=== PATIENT | male | born 1980 | race Caucasian/White ===

== ENCOUNTER 2024-02-07 17:44 | Emergency (ER) | payer OTHER, SELFPAY ==
[2024-02-07 17:46] VITALS: BP 132/85; PULSE 83; RESP 14; TEMP 36.7; O2SAT 96
[2024-02-07] MEDS: ACETAMINOPHEN 1,000 MG/100 ML BTL 400 MG IVPB (18:17)
[2024-02-07 18:21] LABS: Abs Immature Grans 0.02 10^3/uL (0.0-0.06); Absolute Basophil Count 0.07 10^3/uL (0.0-0.2); Absolute Eosinophil Count 0.84 10^3/uL (0.0-0.7); Absolute Lymphocyte Count 2.04 10^3/uL (1.2-3.4); Absolute Monocyte Count 0.84 10^3/uL (0.1-0.8); Absolute Neutrophil Count 4.05 10^3/uL (1.2-6.7); Basophils % 0.9 %; Eosinophils % 10.7 %; HCT 45.1 % (40.0-50.0); HGB 14.3 g/dL (13.5-17.5); Immature Grans % 0.3 %; MCH 31.2 pg (27.0-33.0); MCHC 31.7 % (32.0-36.0); MCV 99 fL (80-95); MPV 11.1 fL (8.0-11.0); Monocytes % 10.7 %; Neutrophils % 51.4 %; Platelet Count 254 10^3/uL (130-400); RBC 4.58 10^6/uL (4.36-5.78); RDW 12.8 % (11.8-14.1); RDW-SD 46.1 fL; WBC 7.86 10^3/uL (4.4-10.8)
[2024-02-07 18:23] LABS: ESR 16 mm/hr (0-15)
[2024-02-07 18:36] LABS: ALT 32 U/L (16-63); AST 32 U/L (15-37); Albumin 3.5 g/dL (3.4-5.0); Alkaline Phosphatase 99 U/L (46-116); Anion Gap 5.2 mmol/L (3-11); BUN 26 mg/dL (7-18); Bilirubin, Total 0.34 mg/dL (0.2-1.0); C-Reactive Protein 0.77 mg/dL (<or=0.5); CO2 32.8 mmol/L (21.0-32.0); CREATININE 1.2 mg/dL (0.70-1.30); Calcium 9.3 mg/dL (8.5-10.1); Chloride 104 mmol/L (98-107); Estimated GFR 77.43 (mL/min/1.73m2); Glucose 97 mg/dL (74-106); Potassium 3.8 mmol/L (3.5-5.1); Sodium 142 mmol/L (136-145); Total Protein 7.9 g/dL (6.4-8.2)
[2024-02-07 19:03] VITALS: BP 106/65; PULSE 78; RESP 14; O2SAT 97
[2024-02-07] MEDS: methylPREDNISolone SUCC 125 MG VIAL IVP (19:06)
--- NOTE | 2024-02-07 19:17 | W.ED.GENAD ---
Discharge Plan Disposition Patient Disposition: Home Condition: Stable Discharge Details Clinical Impression: Abdominal pain, Abdominal pain despite therapy for Crohn's disease Primary Care Provider: Rocio,Local ED Provider: Moises Saavedra Home Meds and New Rx's Prescriptions: New methylprednisolone [Medrol ([place])] 4 mg tablets,dose pack See Rx Instructions .ROUTE .COMPLEX Qty: 21 0RF Rx Instructions: for 6 days No Action omeprazole 20 mg capsule,delayed release(DR/EC) 20 mg PO DAILY Inflectra 100 mg recon soln IV .every 8 weeks Discharge Instructions Additional Instructions: Take the steroids as directed Follow-up with your GI doctor as needed Return to the emergency department with fever or severe abdominal pain or severe bleeding HPI General Date/Time Provider Initiated Documentation: 02/07/24 18:06. Limitations to Documentation: no limitations. Information obtained by: patient. HPI Narrative: 43-year-old gentleman with past medical history of Crohn's disease presents for evaluation of abdominal pain. Abdominal pain is generalized, crampy. Not associated with fever. Does have occasional vomiting, but typically no nausea. He reports that he has frequent stools with this occasionally pink to bright red blood noted. He is on immune modulator infusions every 8 weeks but he went along. Without getting his infusion he just received his first dose in October. His next dose is scheduled in a few weeks. He has to return to [place] to get the doses because of his insurance. Related Data Home Medications ?Medication ?Instructions ?Recorded ?Confirmed infliximab-dyyb 100 mg intravenous IV .every 8 weeks 02/07/24 solution (Inflectra) methylprednisolone 4 mg tablets in See Rx Instructions PO .COMPLEX 02/07/24 a dose pack (Medrol ([place])) #21 dose pk omeprazole 20 mg capsule,delayed 20 mg PO DAILY 02/07/24 02/07/24 release Previous Rx's ?Medication ?Instructions ?Recorded methylprednisolone 4 mg tablets in See Rx Instructions PO .COMPLEX 02/07/24 a dose pack (Medrol ([place])) #21 dose pk Allergies Allergy/AdvReac Type Severity Reaction Status Date / Time No Known Allergies Allergy Unverified 02/07/24 17:54 General Stated Complaint: Abd Prob LULA: 3 Exam Narrative Exam Narrative: Review of Systems: All systems reviewed & are unremarkable except as noted in HPI and below Well-developed, no acute distress NCAT PERRL, normal conjunctiva RRR no murmur Unlabored respiratory effort CTAB Nondistended abdomen soft, nontender no focal neurologic defic calledits ( Course Vital Signs Vital signs: Vital Signs Temperature 36.7 C 02/07/24 17:46 Pulse 83 02/07/24 17:46 Respiratory Rate 14 02/07/24 17:46 Blood Pressure 132/85 02/07/24 17:46 Pulse Oximetry 96 02/07/24 17:46 Temperature 36.7 C 02/07/24 17:46 Temperature Source Oral 02/07/24 17:46 Pulse 78 02/07/24 19:03 Respiratory Rate 14 02/07/24 19:03 Respiratory Effort Normal, Non-Labored 02/07/24 17:52 Blood Pressure 106/65 02/07/24 19:03 Blood Pressure Position Sitting 02/07/24 17:46 Pulse Oximetry 97 02/07/24 19:03 Oxygen Delivery Method Room Air 02/07/24 17:46 Oxygen Flow Rate 0 02/07/24 17:46 Pain Level 8 02/07/24 17:46 Lab/Test Results Lab/Test Results: Laboratory Tests Range/Units 02/07/24 18:05 WBC (4.4-10.8) 10^3/uL 7.86 RBC (4.36-5.78) 10^6/uL 4.58 Hgb (13.5-17.5) g/dL 14.3 Hct (40.0-50.0) % 45.1 MCV (80-95) fL 99 H MCH (27.0-33.0) pg 31.2 MCHC (32.0-36.0) % 31.7 L RDW (11.8-14.1) % 12.8 Plt Count (130-400) 10^3/uL 254 MPV (8.0-11.0) fL 11.1 H Immature Gran % % 0.3 Neutrophils % % 51.4 Lymphocytes % % 26.0 Monocytes % % 10.7 Eosinophils % % 10.7 Basophils % % 0.9 Nucleated RBC % (0.0-0.3) % 0.0 Absolute Neutrophils (1.2-6.7) 10^3/uL 4.05 Absolute Lymphocytes (1.2-3.4) 10^3/uL 2.04 Absolute Monocytes (0.1-0.8) 10^3/uL 0.84 H Absolute Eosinophils (0.0-0.7) 10^3/uL 0.84 H Absolute Basophils (0.0-0.2) 10^3/uL 0.07 ESR (0-15) mm/hr 16 H Sodium (136-145) mmol/L 142 Potassium (3.5-5.1) mmol/L 3.8 Chloride (98-107) mmol/L 104 Carbon Dioxide (21.0-32.0) mmol/L 32.8 H Anion Gap (3-11) mmol/L 5.2 BUN (7-18) mg/dL 26 H Creatinine (0.70-1.30) mg/dL 1.2 Est GFR (CKD-EPI 2020) (mL/min/1.73m2) 77.43 Glucose (74-106) mg/dL 97 Calcium (8.5-10.1) mg/dL 9.3 Total Bilirubin (0.2-1.0) mg/dL 0.34 AST (15-37) U/L 32 ALT (16-63) U/L 32 Alkaline Phosphatase (46-116) U/L 99 C-Reactive Protein (<or=0.5) mg/dL 0.77 H Total Protein (6.4-8.2) g/dL 7.9 Albumin (3.4-5.0) g/dL 3.5 ABO/Rh B Positive Antibody Screen NEGATIVE Medical Decision Making Emergent evaluation of abdominal pain in a patient with Crohn's disease. He is hemodynamically stable. Abdominal exam is benign. He reports that he reached out to his doctor in [place] to try and get started on steroids as this is typically worked with him in the past when he has had ongoing pain. He reports that his doctor encouraged him to follow-up with a local hospital just to make sure that nothing else was going on. Have a low suspicion for an intra-abdominal abscess or other serious complication of Crohn's disease. Lab work was checked. Was also, his normal. Hemoglobin is 14 so I doubt severe ongoing bleeding. ESR and CRP are only slightly above normal limits. Based on these findings, I do not feel that CT scan is indicated or would provide additional information. I will give him steroids based on the patient's history of using steroids with success in the past. He is scheduled to follow-up with his PCP in 2 weeks for reevaluation. Encouraged to return to the emergency department if he develops fever, severe pain or significant bleeding Quality:SDOH Health Related Social Needs: No Data to Display PFSH All Active Problems Abdominal pain despite therapy for Crohn's disease (Acute) Abdominal pain (Acute) Social History Smoking/Tobacco Use Status: Never Smoking risk assessment performed?: Yes Alcohol Intake: former Drug use: Never Substance use type: does not use Housing: house Do you feel safe at home: Yes Do you feel safe in your relationship?: Yes PAWSS Have you Been Recently Intoxicated or Drunk Within the Last 30 days?: No Have you Ever Experienced Previous Episodes of Alcohol Withdrawal?: No Have you ever Experienced Withdrawal Seizures?: No Have you ever Experienced Delirium Tremens(DT)s?: No Have you ever undergone Alcohol Rehabilitation Treatment (i.e, inpt ot outpatient treatment programs)?: Yes Have you ever Experienced Blackouts?: No Have you ever Combined Alcohol with other Downers within the last 90 days?: No Have you ever Combined Alcohol with any other Substance of Abuse during the last 90 days?: No Positive Blood Alcohol level on Presentation? [PCS.BAL]: No Evidence of Increased Autonomic Activity (i.e. HR>120, tremor, sweating, agitation, nausea)?: No Result: 1
== END 2024-02-07 19:03 | disposition home or self-care (01) ==
PROVIDERS: Emergency Provider Emergency Medicine
DX: R10.9 Unspecified abdominal pain (principal); K50.90 Crohn's disease, unspecified, without complications
CPT/HCPCS: 36415; 80053; 85652; 86850; 86900; 86901; 96374; 96375; 99284; 85025; 86140; 99283; J0131; J2919